=== PATIENT | female | born 1970 | race Caucasian/White ===

== ENCOUNTER 2022-08-09 07:49 | Day surgery (SDC) | payer MEDICAID ==
[2022-08-09] MEDS ORDERED: Dextrose 5%-Lactated Ringers 1,000 ML IV SCH (08:30)
[2022-08-09] MEDS ORDERED: Midazolam 1 MG/ML 2 ML SDV ONE (09:16)
[2022-08-09] MEDS ORDERED: fentaNYL 50 MCG/ML SDV ONE (09:16)
[2022-08-09] MEDS ORDERED: Propofol 200 MG/20 ML SDV ONE (09:16)
[2022-08-09 11:04] VITALS: BP 123/71; PULSE 62
== END 2022-08-09 11:06 | disposition home or self-care (01) ==
LOC: JP.SDS 07:49
PROVIDERS: ATTEND Surgery
DX: Z12.11 Encounter for screening for malignant neoplasm of colon (principal); K57.30 Diverticulosis of large intestine without perforation or abscess without bleeding
CPT/HCPCS: 45378; 81025; J2250; J2704; J3010; J7121